=== PATIENT | female | born 1995 | race Caucasian/White ===

== ENCOUNTER 2016-04-16 07:18 | Emergency (ER) | payer SELFPAY ==
[~2016-04-16] VITALS: Ht 167.6 cm; Wt 131.0 kg
[~2016-04-16 07:18] MED LIST: AZIT250T3 PO; IBUP800T23 PO; LEVO.2 PO; SPRI28TA PO
[2016-04-16 07:22] VITALS: BP 154/100; PULSE 131; RESP 18; TEMP 98.9; O2SAT 97
[2016-04-16] MEDS ORDERED: KETOROLAC TROMETHAMINE 30 MG/ML (IVP) VIAL IV PUSH ONE (08:45)
[2016-04-16] MEDS ORDERED: SODIUM CHLOR 0.9% 1000 ML INJ 1,000 ML IV ONE ×2 (08:45→10:45)
[2016-04-16] MEDS ORDERED: SODIUM CHLORIDE 0.9% FLUSH 5 ML FLUSH IVF PRN (08:45)
--- NOTE | 2016-04-16 08:46 | PD ---
HPI Chief Complaint: Chest Pain Time Seen by Provider: 08:42 Travel History International Travel<30 days: No Contact w/Intl Traveler<30days: No Traveled to known affect area: No History of Present Illness HPI 21-year-old female came to the emergency room with history of chest pain in the retrosternal area since this morning radiating up to the her front of her neck. She came in looking distressed and holding her throat saying she was having trouble breathing. However patient was talking and oxygenating well. She was tachycardic with her heart rate in 1 teens in triage. She did look anxious. Patient says that she had the "stomach flu"3 days ago that lasted for 2 days. She was vomiting and diarrhea during those 2 days. However yesterday she did not have any of those but had been dizzy and lightheaded especially when she stood up. She did not have any syncopal episode and did not fall. And today the chest pain started. She continues to be dizzy when she stands up. She says any movement makes the pain worse. She describes it as a squeezing pain. She says it does get worse when she takes a deep breath. Patient is on control pills but not a smoker. No recent history of long distance travel, surgery or procedures. No history of fever or chills. While she was sitting on the stretcher in the room she seemed to be comfortable. Her boyfriend is here with her in the room. She says she is on her period currently. PFSH Past Medical History Narrative Medical List of her past, social and family medical history is reviewed from the nursing note. Hx Anticoagulant Therapy: No Asthma: Yes Cardiovascular Problems: No Chemotherapy: No Cerebrovascular Accident: No Diabetes: No Diminished Hearing: No Respiratory: Yes (ASTHMA, CHILD) Immunizations Current: Yes Thyroid Disease: Yes (HYPOTHYROID) Tetanus Vaccination: Unknown Influenza Vaccination: No ?: Unknown LMP: bcp Past Surgical History Hysterectomy: No Family History Narrative Family History Mom has history of hypercoagulability disorder and multiple DVTs Social History Alcohol Use: No Tobacco Use: No Substance Use: No Allergies-Medications (Allergen,Severity, Reaction): Coded Allergies: Ceclor (Verified Allergy, Severe, WHEEZING, 04/16/16) Codeine (Verified Allergy, Severe, WHEEZING, 04/16/16) Keflex (Verified Allergy, Severe, WHEEZING, 04/16/16) Penicillin (Verified Allergy, Severe, WHEEZING, 04/16/16) Sulfa (Verified Allergy, Severe, WHEEZING, 04/16/16) Comments List of her allergies reviewed from the nursing note. Reported Meds & Prescriptions Reported Meds & Active Scripts Active Reported Sprintec 28 (Norgestimate-Ethinyl Estradiol) 0.25-35 mg-Mcg Tab 1 Tab PO DAILY Synthroid (Levothyroxine Sodium) 200 Mcg Tab 200 Mcg PO DAILY Narrative Medication List of home medications reviewed from the nursing note. Review of Systems Except as stated in HPI: all other systems reviewed are Neg Physical Exam Narrative GENERAL: Awake, alert, mild distress, morbidly obese SKIN: Warm and dry. HEAD: Atraumatic. Normocephalic. EYES: Pupils equal and round. No scleral icterus. No injection or drainage. ENT: No nasal bleeding or discharge. Dry mucous membrane with coated tongue NECK: Trachea midline. No JVD. CARDIOVASCULAR: Regular rate and rhythm. Tachycardia. No murmur appreciated. RESPIRATORY: No accessory muscle use. Clear to auscultation. Breath sounds equal bilaterally. GASTROINTESTINAL: Abdomen soft, non-tender, nondistended. Hepatic and splenic margins not palpable. MUSCULOSKELETAL: No obvious deformities. No clubbing. No cyanosis. No edema. NEUROLOGICAL: Awake and alert. No obvious cranial nerve deficits. Motor grossly within normal limits. Normal speech. PSYCHIATRIC: Appropriate mood and affect; insight and judgment normal. Data Data Last Documented VS Vital Signs Date Time Temp Pulse Resp B/P Pulse Ox O2 Delivery O2 Flow Rate FiO2 04/16/16 12:18 102 16 118/73 97 04/16/16 10:40 Room Air 04/16/16 07:22 98.9 Orders Electrocardiogram (04/16/16 ) Basic Metabolic Panel (Bmp) (04/16/16 08:42) Complete Blood Count With Diff (04/16/16 08:42) D-Dimer (04/16/16 08:42) Prothrombin Time / Inr (Pt) (04/16/16 08:42) Chest, Single Ap (04/16/16 08:42) Ecg Monitoring (04/16/16 08:42) Bilateral Bp Monitoring (04/16/16 08:42) Iv Access Insert/Monitor (04/16/16 08:42) Oximetry (04/16/16 08:42) Oxygen Administration (04/16/16 08:42) Sodium Chloride 0.9% Flush (Ns Flush) (04/16/16 08:45) Sodium Chlor 0.9% 1000 Ml Inj (Ns 1000 M (04/16/16 08:45) Ketorolac Inj (Toradol Inj) (04/16/16 08:45) Ed Urine Pregnancytest Poc (04/16/16 08:42) Urinalysis - C+S If Indicated (04/16/16 08:42) Ct Pulmonary Angiogram (04/16/16 ) Sodium Chlor 0.9% 1000 Ml Inj (Ns 1000 M (04/16/16 10:45) Iohexol 350 Inj (Omnipaque 350 Inj) (04/16/16 10:59) Labs Laboratory Tests Test 04/16/16 04/16/16 09:00 09:05 Urine Collection Type CLEAN CATCH Urine Color YELLOW Urine Turbidity CLEAR Urine pH 6.0 Urine Specific [place] 1.021 Urine Protein TRACE mg/dL Urine Glucose (UA) NEG mg/dL Urine Ketones NEG mg/dL Urine Occult Blood MOD Urine Nitrite NEG Urine Bilirubin NEG Urine Leukocyte Esterase NEG Urine RBC 4-9 /hpf Urine WBC 0-2 /hpf Urine Squamous Epithelial 6-8 /hpf Cells Urine Mucus FEW /lpf Microscopic Urinalysis Comment CULT NOT INDICATED Urine Collection Time 09:00 White Blood Count 12.0 TH/MM3 Red Blood Count 5.16 MIL/MM3 Hemoglobin 12.9 GM/DL Hematocrit 39.6 % Mean Corpuscular Volume 76.8 FL Mean Corpuscular Hemoglobin 25.0 PG Mean Corpuscular Hemoglobin 32.5 % Concent Red Cell Distribution Width 14.6 % Platelet Count 383 TH/MM3 Mean Platelet Volume 9.4 FL Neutrophils (%) (Auto) 76.8 % Lymphocytes (%) (Auto) 14.0 % Monocytes (%) (Auto) 7.4 % Eosinophils (%) (Auto) 0.2 % Basophils (%) (Auto) 1.6 % Neutrophils # (Auto) 9.2 TH/MM3 Lymphocytes # (Auto) 1.7 TH/MM3 Monocytes # (Auto) 0.9 TH/MM3 Eosinophils # (Auto) 0.0 TH/MM3 Basophils # (Auto) 0.2 TH/MM3 CBC Comment AUTO DIFF Differential Comment AUTO DIFF CONFIRMED Prothrombin Time 12.0 SEC Prothromb Time International 1.1 RATIO Ratio D-Dimer Quantitative (PE/DVT) 0.51 MG/L FEU Sodium Level 139 MEQ/L Potassium Level 3.6 MEQ/L Chloride Level 105 MEQ/L Carbon Dioxide Level 23.5 MEQ/L Anion Gap 11 MEQ/L Blood Urea Nitrogen 6 MG/DL Creatinine 0.60 MG/DL Estimat Glomerular Filtration 127 ML/MIN Rate Random Glucose 108 MG/DL Calcium Level 9.1 MG/DL [facility] Medical Decision Making Medical Screen Exam Complete: Yes Emergency Medical Condition: Yes Medical Record Reviewed: Yes Interpretation(s) Twelve-lead EKG was reviewed by me. Normal sinus rhythm, normal axis, tachycardia, incidental S1 Q 3 T3 finding, nonspecific ST-T wave changes. Heart rate of 117 bpm. Differential Diagnosis PE, pneumonia, pleurisy, chest wall pain, pericarditis Narrative Course 9:37 AM patient was given Toradol for pain management. I've ordered a liter of IV fluid bolus since she did appear dehydrated quite possibly from the gastroenteritis event she had prior. I will also ordered a d-dimer given her family history and the EKG finding. Awaiting for these blood test to return. Chest x-ray was read to be within normal limits. 11:27 AM given the elevated d-dimer a CT pulmonary angiogram was ordered. That was done and was negative for PE. Patient has received 2 L of IV fluid bolus so far and feels much better. Her tachycardia has come down. I will discharge her home. Procedures EKG Prior to Arrival: Yes Diagnosis Primary Impression: Orthostatic hypotension Additional Impressions: Dehydration Nonspecific chest pain Tachycardia Referrals: Primary Care Physician 3 days Additional Instructions: Drink plenty fluid at home. Return to the ER if the condition worsens or any other new concerns. You can take Motrin/Advil/ibuprofen for your chest pain. Follow-up with your primary care otherwise in couple days. Med/Other Pt SpecificInfo: No Change to Meds Disposition: 01 DISCHARGE HOME Condition: Stable Britney Baires MD Apr 16, 2016 08:46
[2016-04-16 09:05] VITALS: O2SAT 98
[2016-04-16 09:10] VITALS: BP_SYST 122; BP_SYST 127; BP_DIAS 59; BP_DIAS 83; PULSE 78; RESP 16; O2SAT 98
[2016-04-16 09:23] LABS: GLUCOSE,URINE NEG (NEG); KETONE, URINE NEG (NEG); NITRITE,URINE NEG (NEG)
[2016-04-16 09:26] LABS: BLOOD, URINE MOD (NEG); METHOD OF COLLECTION CLEAN CATCH; URINE COLOR YELLOW (YELLW/STRAW)
[2016-04-16 09:26] LABS: AUTOMATED NEUTROPHIL # 9.2 TH/MM3 (1.8-7.7); BASOPHIL # 0.2 TH/MM3 (0-0.2); BASOPHIL % 1.6 % (0.0-2.0); EOSINOPHIL % 0.2 % (0.0-4.0); HEMATOCRIT 39.6 % (35.0-46.0); LYMPHOCYTE # 1.7 TH/MM3 (1.0-4.8); MEAN CELL VOLUME 76.8 FL (80.0-100.0); MEAN CORPUSCULAR HGB CONC 32.5 % (32.0-36.0); MONO % 7.4 % (0.0-8.0); NEUT % 76.8 % (16.0-70.0); PLATELET COUNT 383 TH/MM3 (150-450); RED BLOOD COUNT 5.16 MIL/MM3 (4.00-5.30); RED CELL DISTRIBUTION WIDTH 14.6 % (11.6-17.2)
[2016-04-16 09:27] LABS: MUCUS URINE FEW /lpf (OCC)
[2016-04-16 09:28] LABS: COMMENT (UR) CULT NOT INDICATED; CULTURE IF INDICATED CULT NOT INDICATED; WBC, URINE 0-2 /hpf (0-5)
--- NOTE | 2016-04-16 09:28 | RADHPO ---
EXAM DATE/TIME: 04/16/2016 08:51 [facility] COMPARISON: None. INDICATIONS : Chest pain. MEDICAL HISTORY : Hyperparathyroidism. Asthma. SURGICAL HISTORY : None. ENCOUNTER: Initial ACUITY: 1 day PAIN SCORE: 7/10 LOCATION: chest FINDINGS: A single view of the chest demonstrates the lungs to be symmetrically aerated without evidence of mas s, infiltrate or effusion. The cardiomediastinal contours are unremarkable. Osseous structures are intact. CONCLUSION: No acute disease. Car Lagos MD on April 16, 2016 at 9:26 Board Certified Radiologist. This report was verified electronically.
[2016-04-16 09:35] LABS: HEMO FLAGS AUTO DIFF
[2016-04-16 09:37] LABS: INTERNATIONAL NORMALIZED RATIO 1.1 RATIO
[2016-04-16 09:50] LABS: POTASSIUM 3.6 MEQ/L (3.5-5.1)
[2016-04-16 09:57] LABS: SCAN/DIFF AUTO DIFF CONFIRMED
[2016-04-16 10:10] LABS: BICARBONATE 23.5 MEQ/L (21.0-32.0)
[2016-04-16 10:40] VITALS: BP 117/80; PULSE 95; RESP 18; O2SAT 98
[2016-04-16] MEDS ORDERED: IOHEXOL 350 MG/ML 10 ML VIAL (for RAD DIAG) IV ONE (10:59)
--- NOTE | 2016-04-16 11:19 | RADHPO ---
EXAM DATE/TIME: 04/16/2016 10:48 [facility] COMPARISON: CHEST SINGLE AP, April 16, 2016, 8:51. INDICATIONS : Chest pain. IV CONTRAST: 75 cc Omnipaque 350 (iohexol) IV RADIATION DOSE: 21.52 CTDIvol (mGy) MEDICAL HISTORY : Hypothyroidism. Asthma. SURGICAL HISTORY : None. ENCOUNTER: Initial ACUITY: 1 day PAIN SCALE: 4/10 LOCATION: chest TECHNIQUE: Volumetric scanning of the chest was performed using a pulmonary embolism protocol MIP images were re constructed. Using automated exposure control and adjustment of the mA and/or kV according to patien t size, radiation dose was kept as low as reasonably achievable to obtain optimal diagnostic quality images. FINDINGS: PULMONARY ARTERIES: No filling defects are seen in the pulmonary arteries through the segmental level. LUNGS: There is no consolidation or pneumothorax . No concerning pulmonary nodule is visualized. PLEURAE: There is no pleural thickening or pleural effusion. MEDIASTINUM: There is good visualization of the great vessels of the middle mediastinum. No evidence of mediastin al or hilar adenopathy/mass. MUSCULOSKELETAL: Within normal limits for patient age. MISCELLANEOUS: The visualized upper abdominal organs demonstrate no acute abnormality. CONCLUSION: No evidence of pulmonary emboli. Car Lagos MD on April 16, 2016 at 11:16 Board Certified Radiologist. This report was verified electronically.
[2016-04-16 12:18] VITALS: BP 118/73
--- NOTE | 2016-04-16 16:45 | EKG ---
Date Performed: 04/16/2016 Time Performed: 07:24:20 PTAGE: 21 years EKG: Sinus tachycardia. Possible left atrial abnormality Borderline ECG NO PREVIOUS TRACING DOCTOR: Dennis Suh Interpretating Date/Time 04/16/2016 16:42:13
== END 2016-04-16 12:25 | disposition home or self-care (01) ==
LOC: PHED 07:18
DX: I95.1 Orthostatic hypotension (principal); E86.0 Dehydration; R07.9 Chest pain, unspecified; R00.0 Tachycardia, unspecified; E03.9 Hypothyroidism, unspecified
CPT/HCPCS: 71010; 71275; 80048; 81001; 84703; 85025; 85379; 85610; 93005; 96361; 96374; 99285; J1885; J7030; Q9967

== ENCOUNTER 2017-03-24 16:06 | Emergency (ER) | payer MEDICAID ==
[~2017-03-24] VITALS: Ht 167.6 cm; Wt 129.5 kg
[~2017-03-24 16:06] MED LIST changes: -AZIT250T3 PO; -IBUP800T23 PO
[2017-03-24 16:10] VITALS: BP 144/74; PULSE 120; RESP 16; TEMP 100.1; O2SAT 97
[2017-03-24] MEDS ORDERED: ACETAMINOPHEN 500 MG CPLT PO ONE (16:45)
--- NOTE | 2017-03-24 17:05 | PD ---
HPI Chief Complaint: Cold / Flu Symptoms Time Seen by Provider: 16:23 Travel History International Travel<30 days: No Contact w/Intl Traveler<30days: No Traveled to known affect area: No History of Present Illness HPI This is a 21-year-old female here with flulike illness. Duration one day. She reports fever, body aches, sore throat, cough. Symptoms severity moderate. No aggravating or alleviating factors. No sick contacts or foreign travel. PFSH Past Medical History Hx Anticoagulant Therapy: No Asthma: Yes Cardiovascular Problems: No Chemotherapy: No Cerebrovascular Accident: No Diabetes: No Diminished Hearing: No Respiratory: Yes (ASTHMA, CHILD) Immunizations Current: Yes Thyroid Disease: Yes (HYPOTHYROID) Tetanus Vaccination: Unknown ?: Not LMP: DOES NOT GET-CONTINUOUS BCP Past Surgical History Hysterectomy: No Social History Alcohol Use: No Tobacco Use: No Substance Use: No Allergies-Medications (Allergen,Severity, Reaction): Coded Allergies: Sulfa (Sulfonamide Antibiotics) (Unverified Allergy, Severe, WHEEZING, ) cefaclor (Unverified Allergy, Severe, WHEEZING, 03/24/17) cephalexin (Unverified Allergy, Severe, WHEEZING, 03/24/17) codeine (Unverified Allergy, Severe, WHEEZING, 03/24/17) penicillin G (Unverified Allergy, Severe, WHEEZING, 03/24/17) Reported Meds & Prescriptions Reported Meds & Active Scripts Active Reported Sprintec 28 (Norgestimate-Ethinyl Estradiol) 0.25-35 mg-Mcg Tab 1 Tab PO DAILY Synthroid (Levothyroxine Sodium) 200 Mcg Tab 200 Mcg PO DAILY Review of Systems Except as stated in HPI: all other systems reviewed are Neg General / Constitutional: Positive: Fever Eyes: No: Visual changes HENT: Positive: Sore Throat Cardiovascular: No: Chest Pain or Discomfort Respiratory: Positive: Cough Gastrointestinal: No: Abdominal Pain Genitourinary: No: Dysuria Musculoskeletal: Positive: Myalgias Physical Exam Narrative GENERAL: Alert and nontoxic appearing 21-year-old female SKIN: Warm and dry. No rash HEAD: Normocephalic. EYES: No injection or drainage. Ear/nose/throat: No TM erythema. Clear nasal discharge. Pharyngeal erythema without tonsillar hypertrophy or exudate. NECK: Supple, trachea midline. No meningismus CARDIOVASCULAR: Regular rate and rhythm without murmurs, gallops, or rubs. RESPIRATORY: Breath sounds equal bilaterally. No accessory muscle use. No wheezing, rales, or rhonchi. GASTROINTESTINAL: Abdomen soft, non-tender, nondistended. MUSCULOSKELETAL: No cyanosis, or edema. BACK: Nontender without obvious deformity. No CVA tenderness. Data Data Last Documented VS Vital Signs Date Time Temp Pulse Resp B/P (MAP) Pulse Ox O2 Delivery O2 Flow Rate FiO2 03/24/17 16:17 16 97 Room Air 03/24/17 16:10 100.1 120 144/74 (97) Orders Orders Influenzae A/B Antigen (03/24/17 16:38) Acetaminophen (Tylenol) (03/24/17 16:45) MDM Medical Decision Making Medical Screen Exam Complete: Yes Emergency Medical Condition: Yes Differential Diagnosis Influenza, pneumonia, bronchitis Narrative Course 21-year-old female here with flulike illness. She is nontoxic appearing. On arrival She was febrile at 101 and tachycardic at 120. She was given 1 g of Tylenol and provided oral fluids. On reexam temperature and heart rate have improved. Influenza is positive. Patient will be treated with Tamiflu Diagnosis Primary Impression: Influenza A Referrals: Primary Care Physician Departure Forms: Tests/Procedures, Work Release Enter return to work date: Mar 28, 2017 Additional Instructions: Tylenol and ibuprofen every 6 hours as needed for fever and pain. Stay hydrated with water and Gatorade. Tamiflu as directed. Cough medication as needed. Scripts Dextromethorphan-Promethazine Liq (Promethazine-Dextromethorphan Liq) 6.25-15 Mg /5 Ml Syrp 10 ML PO Q6HR Y for COUGH, #120 ML Prov: Joycelyn George 03/24/17 Oseltamivir (Tamiflu) 75 Mg Cap 75 MG PO BID for Mgmt Viral Infection for 5 Days, #10 CAP 0 Refills Prov: Joycelyn George 03/24/17 Disposition: 01 DISCHARGE HOME Condition: Stable Joycelyn George Mar 24, 2017 17:05
[2017-03-24] MEDS ORDERED: OSEL75 PO (17:19)
[2017-03-24] MEDS ORDERED: PROMSYP3 PO (17:21)
[2017-03-24 17:25] VITALS: TEMP 100.1
== END 2017-03-24 17:34 | disposition home or self-care (01) ==
LOC: PHEFT 16:06
DX: J10.1 Influenza due to other identified influenza virus with other respiratory manifestations (principal); J45.909 Unspecified asthma, uncomplicated; R00.0 Tachycardia, unspecified
CPT/HCPCS: 87804; 99284

== ENCOUNTER 2017-06-23 10:39 | Emergency (ER) | payer MEDICAID ==
[~2017-06-23] VITALS: Ht 167.6 cm; Wt 125.0 kg
[~2017-06-23 10:39] MED LIST changes: +OSEL75 PO; +PROMSYP3 PO
[2017-06-23 10:46] VITALS: BP 146/81; PULSE 83; RESP 16; TEMP 98.3; O2SAT 98
[2017-06-23] MEDS ORDERED: AVIATAB PO (11:00)
[2017-06-23] MEDS ORDERED: AZIT250T3 PO (11:23)
--- NOTE | 2017-06-23 11:24 | PD ---
HPI Chief Complaint: Cold / Flu Symptoms Time Seen by Provider: 10:52 Travel History International Travel<30 days: No Contact w/Intl Traveler<30days: No Traveled to known affect area: No History of Present Illness HPI This is a 22-year-old female here with sore throat and fever 3 days. Symptom severity is moderate. No aggravating or alleviating factors. Denies difficulty swallowing or tolerating secretions. Symptom severity is moderate. Has not attempted any [id number] medications. No sick contacts or foreign travel. PFSH Past Medical History Hx Anticoagulant Therapy: No Asthma: Yes Cardiovascular Problems: No Chemotherapy: No Cerebrovascular Accident: No Diabetes: No Diminished Hearing: No Respiratory: Yes (asthma) Immunizations Current: Yes Thyroid Disease: Yes (HYPOTHYROID) Tetanus Vaccination: > 5 Years Influenza Vaccination: No ?: Not LMP: no menses on the control pill Past Surgical History Surgical History: No Previous Surgery Hysterectomy: No Social History Alcohol Use: No Tobacco Use: No Substance Use: No Allergies-Medications (Allergen,Severity, Reaction): Coded Allergies: Sulfa (Sulfonamide Antibiotics) (Unverified Allergy, Severe, WHEEZING, ) cefaclor (Unverified Allergy, Severe, WHEEZING, 06/23/17) cephalexin (Unverified Allergy, Severe, WHEEZING, 06/23/17) codeine (Unverified Allergy, Severe, WHEEZING, 06/23/17) penicillin G (Unverified Allergy, Severe, WHEEZING, 06/23/17) Reported Meds & Prescriptions Reported Meds & Active Scripts Active Reported Aviane (Levonorgestrel-Ethinyl Estradiol) 0.1-20 Mg-Mcg Tab 1 Tab PO DAILY Synthroid (Levothyroxine Sodium) 200 Mcg Tab 200 Mcg PO DAILY Review of Systems Except as stated in HPI: all other systems reviewed are Neg General / Constitutional: Positive: Fever Eyes: No: Visual changes HENT: Positive: Sore Throat, Earache Cardiovascular: No: Chest Pain or Discomfort Respiratory: No: Shortness of Breath Gastrointestinal: No: Abdominal Pain Genitourinary: No: Dysuria Physical Exam Narrative GENERAL: Alert and well-appearing 22-year-old female. SKIN: Warm and dry. HEAD: Normocephalic. EYES: No injection or drainage. ENT: Notable pharyngeal erythema with mild tonsillar hypertrophy and scant exudate. Uvula is midline. Airways patent. Normal phonation. NECK: Supple, trachea midline. No lymphadenopathy. No meningismus CARDIOVASCULAR: Regular rate and rhythm without murmurs, gallops, or rubs. RESPIRATORY: Breath sounds equal bilaterally. No accessory muscle use. GASTROINTESTINAL: Abdomen soft, non-tender, nondistended. MUSCULOSKELETAL: No cyanosis, or edema. BACK: Nontender without obvious deformity. No CVA tenderness. Data Data Last Documented VS Vital Signs Date Time Temp Pulse Resp B/P (MAP) Pulse Ox O2 Delivery O2 Flow Rate FiO2 06/23/17 10:46 98.3 83 16 146/81 (102) 98 MDM Medical Decision Making Medical Screen Exam Complete: Yes Emergency Medical Condition: Yes Differential Diagnosis Strep pharyngitis, viral pharyngitis, URI Narrative Course 22-year-old female here with pharyngitis and scant exudate. She has multiple drug allergies. She will be prescribed azithromycin. Diagnosis Primary Impression: Pharyngitis Qualified Codes: J02.9 - Acute pharyngitis, unspecified Referrals: Primary Care Physician Additional Instructions: Antibiotics as directed. Follow-up with your doctor. Drink plenty fluids. Tylenol and ibuprofen for pain and fever Scripts Azithromycin (Azithromycin) 250 Mg Tab 250 MG PO DIRECTED for Infection, #6 TAB 0 Refills Take 2 tabs (500 mg) on day 1 then 1 tab daily x 4 days. Prov: Joycelyn George 06/23/17 Disposition: 01 DISCHARGE HOME Condition: Stable Joycelyn George Jun 23, 2017 11:24
== END 2017-06-23 11:35 | disposition home or self-care (01) ==
LOC: PHEFT 10:39
DX: J02.9 Acute pharyngitis, unspecified (principal); J45.909 Unspecified asthma, uncomplicated; E03.9 Hypothyroidism, unspecified; Z79.899 Other long term (current) drug therapy; Z88.2 Allergy status to sulfonamides; Z88.5 Allergy status to narcotic agent; Z88.0 Allergy status to penicillin; Z88.8 Allergy status to other drugs, medicaments and biological substances
CPT/HCPCS: 99283